=== PATIENT | female | born 1990 | race Caucasian/White ===

== ENCOUNTER 2017-08-09 12:17 | Emergency (ER) | payer MEDICAID, OTHER ==
[2017-08-09] MEDS ORDERED: TORAdol 30 mg Injection IM ONE (13:59)
[2017-08-09 14:05] LABS: Collection Type CLEAN CATCH
--- NOTE | 2017-08-09 14:05 | ERPHSYRPT ---
- History of Present Illness Time Seen by Provider: 08/09/17 13:55 Source: patient Exam Limitations: no limitations Patient Subjective Stated Complaint: states for two days has had urinary hesitency and burning with urination. also having lower back and groin pain Triage Nursing Assessment: ambulated to room per self. skin w/d, color normal, resp easy. abd soft. urine is cloudy and has foul odor. Physician History: 27 year old morbidly obese white female complains of urinary hesitancy, low back pain and dysuris mild suprapubis discomfort. no fevers, no vomiting. PMH migraines, seizures, sleep apnea, hypothyroidism, depression polycystic ovaries, hashimotos PSH cholecystectomy, d+C, tubes removed Timing/Duration: day(s) (2-3 days) Activites at Onset: none Quality: aching, burning Onset Location: other (low back ) Pain Radiation: suprapubic Severity of Pain-Max: mild Severity of Pain-Current: mild Prior abdominal problems: none Modifying Factors: Improves With: urinating. Worsens With: analgesics, antacids , breathing, coughing, defecating, eating, exercise, lying down, palpation, rest , vomiting, position, walking Associated Symptoms: abdominal pain (suprapubic abdomina; pain), dysuria, No fever, No chills, No diaphoresis, No nausea, No vomiting, No nocturia, No polyuria, No urinary frequency, No , No loss of bladder control, No lower back pain, No lumps, No mass, No syncope, No vaginal discharge, No vaginal fluid leakage Allergies/Adverse Reactions: sulfamethoxazole [From Bactrim] Allergy (Severe, Unverified 03/10/16 23:26) Difficulty Breathing RASH trimethoprim [From Bactrim] Allergy (Severe, Unverified 03/10/16 23:26) Difficulty Breathing RASH Home Medications: Levothyroxine Sodium 25 Mcg [Synthroid 25 Mcg] 25 mcg PO DAILY 01/28/12 [ History] Aspirin [Aspirin EC] 81 mg PO DAILY 03/10/16 [History] Vits W-Ca,Fe,FA(<1Mg) [] 1 tab PO DAILY 03/10/16 [History] Hx Tetanus, Diphtheria Vaccination/Date Given: Yes (2015) Hx Influenza Vaccination/Date Given: No Hx Pneumococcal Vaccination/Date Given: No - Review of Systems Constitutional: No Fever, No Chills Eyes: No Symptoms Ears, Nose, & Throat: No Symptoms Respiratory: No Cough, No Dyspnea Cardiac: No Chest Pain, No Edema, No Syncope Abdominal/Gastrointestinal: Abdominal Pain (suprapubic abdominal discomfort), No No Symptoms, No Nausea, No Vomiting, No Diarrhea, No Hematemesis, No Hematochezia, No Melena, No Dysphagia, No Appetite Changes Genitourinary Symptoms: Dysuria, Hesitancy, No Frequency, No Hematuria, No Incontinence, No Urgency, No Urinary Retention, No Flank Pain, No Menorrhagia, No , No Vaginal Bleeding, No Vaginal Discharge, No Vaginal Itching Musculoskeletal: Back Pain (low back pain bilaterally) Skin: No Rash Neurological: No Dizziness, No Focal Weakness, No Sensory Changes Psychological: No Symptoms Endocrine: No Symptoms All Other Systems: Reviewed and Negative - Past Medical History Pertinent Past Medical History: Yes Neurological History: Migraines, Seizures ENT History: No Pertinent History Cardiac History: No Pertinent History Respiratory History: Asthma, Sleep Apnea Endocrine Medical History: Hypothyroidism Musculoskeletal History: No Pertinent History GI Medical History: No Pertinent History History: No Pertinent History Psycho-Social History: Depression Female Reproductive Disorders: Other Other Medical History: PCOS; 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 - Past Surgical History Past Surgical History: Yes Neuro Surgical History: No Pertinent History Cardiac: No Pertinent History Respiratory: No Pertinent History Gastrointestinal: Cholecystectomy Genitourinary: No Pertinent History Musculoskeletal: No Pertinent History Female Surgical History: Section Other Surgical History: D&C, fallopian tubes removed - Social History Smoking Status: Current every day smoker How long have you smoked: 9 Exposure to second hand smoke: No Drug Use: none Patient Lives Alone: No - Female History Hx Last Menstrual Period: 07/20/17 Hx Now: No - Nursing Vital Signs Nursing Vital Signs: Initial Vital Signs Temperature 97.4 F 08/09/17 13:13 Pulse Rate 79 08/09/17 13:13 Respiratory Rate 16 08/09/17 13:13 Blood Pressure 134/65 08/09/17 13:13 O2 Sat by Pulse Oximetry 94 L 08/09/17 13:13 Pain Scale Pain Intensity 8 - Physical Exam General Appearance: mild distress, obese (morbidly obese) Eye Exam: PERRL/EOMI, eyes nml inspection Ears, Nose, Throat Exam: normal ENT inspection, TMs normal, pharynx normal, moist mucous membranes Neck Exam: normal inspection, non-tender, supple, full range of motion Respiratory Exam: normal breath sounds, lungs clear, No respiratory distress Cardiovascular Exam: regular rate/rhythm, normal heart sounds, normal peripheral pulses Gastrointestinal/Abdomen Exam: soft, No tenderness, No mass Back Exam: normal inspection, normal range of motion, No CVA tenderness, No vertebral tenderness Extremity Exam: normal inspection, normal range of motion, pelvis stable Neurologic Exam: alert, oriented x 3, cooperative, 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, normal mood/affect, sensation nml, No motor deficits Skin Exam: normal color, warm, dry Lymphatic Exam: No adenopathy SpO2 Interpretation: normal (94%) SpO2: 94 Oxygen Delivery: Room Air Ordered Tests: Active Orders 24 hr Category Date Time Status Clean Catch Urine Specimen STAT Care 08/09/17 13:25 Active CULTURE,URINE Stat Lab 08/09/17 13:41 Received HCG,QUALITATIVE URINE Stat Lab 08/09/17 13:41 Completed UA W/ MICROSCOPIC Stat Lab 08/09/17 13:41 Completed Medication Summary Discontinued Medications Generic Name Dose Route Start Last Admin Trade Name Freq PRN Reason Stop Dose Admin Ketorolac Tromethamine 60 mg 08/09/17 13:59 08/09/17 14:08 Toradol 30 Mg Injection IM 08/09/17 14:00 60 mg STAT ONE Administration Ketorolac Tromethamine Confirm 08/09/17 14:07 Toradol 30 Mg Injection Administered 08/09/17 14:08 Dose 60 mg .ROUTE .[employer] ONE Lab/Rad Data: Laboratory Results 08/09/17 08/09/17 Range/Units 13:41 13:41 Ur Collection Type CLEAN CATCH Urine Color YELLOW (YELLOW) Urine Appearance HAZY (CLEAR) Urine pH 5.0 (5-6) Ur Specific [place] 1.015 (1.005-1.025) Urine Protein NEGATIVE (Negative) Urine Ketones NEGATIVE (NEGATIVE) Urine Blood TRACE LYSED (0-5) Sergo/ul Urine Nitrite NEGATIVE (NEGATIVE) Urine Bilirubin NEGATIVE (NEGATIVE) Urine Urobilinogen NORMAL (0-1) mg/dL Ur Leukocyte Esterase 2+ (NEGATIVE) Urine Microscopic RBC 2-5 (0-2) /HPF Urine Microscopic WBC 10-15 (0-5) /HPF Ur Epithelial Cells MANY (FEW) /HPF Urine Bacteria MODERATE (NEGATIVE) /HPF Urine Culture Reflexed YES (NO) Urine Glucose NEGATIVE (NEGATIVE) mg/dL Urine HCG, Qual NEGATIVE (Negative) Specimen Received 08/09/2017 1330 - Progress Progress: improved Air Movement: fair Progress Note: 08/09/17 14:12 Patient with urinary tract infection will send home with cipro 500 bid x 7 days , small amount of norco for pain. - Departure Time of Disposition: 14:13 Departure Disposition: Home Clinical Impression: UTI (urinary tract infection) Qualifiers: Urinary tract infection type: site unspecified Hematuria presence: without hematuria Qualified Code(s): N39.0 - Urinary tract infection, site not specified Condition: Fair Critical Care Time: No Referrals: DAVE TAYLOR MD [Primary Care Provider] - Instructions: Urinary Tract Infection (UTI) Additional Instructions: Return home, plenty of fluids, cipro , norco as prescribed. follow up with your family doctor. return for acute distress or for sever symptoms. Prescriptions: Ciprofloxacin [Cipro 500 MG] 500 mg PO BIDAC #14 tablet Hydrocodone/Acetaminophen [[place] 5-325 Tablet] 1 tab PO Q4-6HPRN PRN #10 tablet MDD 6 tablets PRN Reason: Pain
[2017-08-09 14:06] LABS: Bacteria MODERATE /HPF (NEGATIVE); Bilirubin NEGATIVE (NEGATIVE); Blood TRACE LYSED Ery/ul (0-5); COMPLETE URINE MICROSCOPIC? YES; Epithelial Cells MANY /HPF (FEW); Glucose NEGATIVE (NEGATIVE); Leukocyte Esterase 2+ (NEGATIVE)
[2017-08-09 14:07] LABS: ADD URINE CULTURE? YES (NO)
[2017-08-09] MEDS ORDERED: TORAdol 30 mg Injection ONE (14:07)
[2017-08-09 14:33] VITALS: BP 121/79; PULSE 60; O2SAT 96
== END 2017-08-09 14:33 | disposition home or self-care (01) ==
LOC: ED 12:17
DX: N39.0 Urinary tract infection, site not specified (principal)
CPT/HCPCS: 81000; 84703; 87077; 87086; 87186; 96372; 99283; J1885

== ENCOUNTER 2017-11-02 11:12 | Emergency (ER) | payer OTHER ==
[2017-11-02] MEDS ORDERED: Sodium Chloride 0.9% 1000 ML 1,000 ML IV STA (11:31)
[2017-11-02] MEDS ORDERED: Zofran 4 MG/2 ML VIAL IV ONE (11:31)
--- NOTE | 2017-11-02 11:33 | ERPHSYRPT ---
- History of Present Illness Time Seen by Provider: 11/02/17 11:33 Historian: patient Physician History: 27-year-old white female arrives with complaint of right middle quadrant abdominal pain nausea vomiting diarrhea symptoms since 3:00 this morning. Past medical history includes migraines, seizures, sleep apnea, hypothyroidism, depression, polycystic ovaries, Karley's thyroiditis. Past surgical history includes cholecystectomy D&C and she states she had her tubes removed. Social history positive tobacco use denies alcohol or illicit drug use Timing/Duration: today (3 AM) Activities at Onset: rest Quality: cramping Abdominal Pain Onset Location: other (right middle quadrant) Severity of Pain-Max: moderate Severity of Pain-Current: mild Modifying Factors: Improves With: vomiting, other (diarrhea) Associated Symptoms: diarrhea, nausea, vomiting, No back, No chest pain, No diaphoresis, No fever/chills, No fatigue, No headache, No heartburn, No loss of appetite, No neck pain, No rash, No shortness of breath, No syncope, No weakness Previous symptoms: no prior history Allergies/Adverse Reactions: sulfamethoxazole [From Bactrim] Allergy (Severe, Unverified 11/02/17 12:11) Difficulty Breathing RASH trimethoprim [From Bactrim] Allergy (Severe, Unverified 11/02/17 12:11) Difficulty Breathing RASH Home Medications: Levothyroxine Sodium 25 Mcg [Synthroid 25 Mcg] 25 mcg PO DAILY 01/28/12 [ History] Alprazolam 1 mg [Xanax 1 mg] 1 mg PO DAILY PRN 11/02/17 [History] Hx Tetanus, Diphtheria Vaccination/Date Given: Yes (2015) Hx Influenza Vaccination/Date Given: No Hx Pneumococcal Vaccination/Date Given: No - Review of Systems Constitutional: No Fever, No Chills Eyes: No Symptoms Ears, Nose, & Throat: No Symptoms Respiratory: No Cough, No Dyspnea Cardiac: No Chest Pain, No Edema, No Syncope Abdominal/Gastrointestinal: Abdominal Pain, Nausea, Vomiting, Diarrhea, No Constipation, No Hematemesis, No Hematochezia, No Melena, No Dysphagia, No Appetite Changes Genitourinary Symptoms: No Dysuria Musculoskeletal: No Back Pain, No Neck Pain Skin: No Rash Neurological: No Dizziness, No Focal Weakness, No Sensory Changes Psychological: No Symptoms Endocrine: No Symptoms All Other Systems: Reviewed and Negative - Past Medical History Pertinent Past Medical History: Yes Neurological History: Migraines, Seizures ENT History: No Pertinent History Cardiac History: No Pertinent History Respiratory History: Asthma, Sleep Apnea Endocrine Medical History: Hypothyroidism Musculoskeletal History: No Pertinent History GI Medical History: No Pertinent History History: No Pertinent History Psycho-Social History: Depression Female Reproductive Disorders: Other Other Medical History: PCOS; 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 - Past Surgical History Past Surgical History: Yes Neuro Surgical History: No Pertinent History Cardiac: No Pertinent History Respiratory: No Pertinent History Gastrointestinal: Cholecystectomy Genitourinary: No Pertinent History Musculoskeletal: No Pertinent History Female Surgical History: Section Other Surgical History: D&C, fallopian tubes removed - Social History Smoking Status: Current every day smoker How long have you smoked: 9 Exposure to second hand smoke: No Drug Use: none Patient Lives Alone: No - Nursing Vital Signs Nursing Vital Signs: Initial Vital Signs Temperature 98.0 F 11/02/17 11:32 Pulse Rate 96 H 11/02/17 11:32 Respiratory Rate 18 11/02/17 11:32 Blood Pressure 140/100 11/02/17 11:32 O2 Sat by Pulse Oximetry 98 11/02/17 11:32 Pain Scale Pain Intensity 8 - Physical Exam General Appearance: mild distress Eye Exam: PERRL/EOMI, eyes nml inspection Ears, Nose, Throat Exam: normal ENT inspection, pharynx normal, moist mucous membranes Neck Exam: normal inspection, non-tender, supple, full range of motion Respiratory Exam: normal breath sounds, lungs clear, No respiratory distress Cardiovascular Exam: regular rate/rhythm, normal heart sounds Gastrointestinal/Abdomen Exam: soft, normal bowel sounds, tenderness (mild right middle quadrant tenderness with palpation), No distention, No mass, No guarding, No ecchymosis, No pulsatile mass, No rebound, No hernia, No hepatomegaly, No organomegaly, No splenomegaly Back Exam: normal inspection, normal range of motion, No CVA tenderness, No vertebral tenderness Extremity Exam: normal inspection, normal range of motion, pelvis stable Neurologic Exam: alert, oriented x 3, cooperative, normal mood/affect, nml cerebellar function, sensation nml, No motor deficits Skin Exam: normal color, warm, dry SpO2 Interpretation: normal (98%) - Course Nursing assessment & vital signs reviewed: Yes - CT Exams Abdomen/Pelvis CT Interpretation: Discussed w/radiologist (CT abdomen and pelvis with contrast negative.) Ordered Tests: Active Orders 24 hr Category Date Time Status IV Insertion STAT Care 11/02/17 11:31 Active ABDOMEN AND PELVIS W CONTRAST [CT] Stat Exams 11/02/17 13:27 Completed AMYLASE Stat Lab 11/02/17 11:57 Completed CBC W DIFF Stat Lab 11/02/17 11:57 Completed CMP Stat Lab 11/02/17 11:57 Completed HCG QUALITATIVE,SERUM Stat Lab 11/02/17 11:57 Completed LIPASE Stat Lab 11/02/17 11:57 Completed UA W/RFX UR CULTURE Stat Lab 11/02/17 13:00 Completed Medication Summary Discontinued Medications Generic Name Dose Route Start Last Admin Trade Name Freq PRN Reason Stop Dose Admin Sodium Chloride 1,000 mls @ 999 mls/hr 11/02/17 11:31 11/02/17 11:53 Sodium Chloride 0.9% 1000 Ml IV 11/02/17 12:31 999 mls/hr .Q1H1M STA Administration Sodium Chloride Confirm 11/02/17 11:43 Sodium Chloride 0.9% 1000 Ml Administered 11/02/17 11:44 Dose 1,000 mls @ ud .ROUTE .STK-MED ONE Ketorolac Tromethamine Confirm 11/02/17 11:45 Toradol 30 Mg Injection Administered 11/02/17 11:46 Dose 30 mg .ROUTE .STK-MED ONE Ketorolac Tromethamine 30 mg 11/02/17 11:45 11/02/17 11:53 Toradol 30 Mg Injection IV 11/02/17 11:46 30 mg STAT ONE Administration Ondansetron HCl 4 mg 11/02/17 11:31 11/02/17 11:53 Zofran 4 Mg/2 Ml Vial IV 11/02/17 11:32 4 mg STAT ONE Administration Ondansetron HCl Confirm 11/02/17 11:43 Zofran 4 Mg/2 Ml Vial Administered 11/02/17 11:44 Dose 4 mg .ROUTE .STK-MED ONE Lab/Rad Data: Laboratory Result Diagrams 11/02/17 11:57 11/02/17 11:57 Laboratory Results 03/19/18 03/19/18 03/19/18 Range/Units 13:00 11:57 11:57 WBC (4.0-10.5) K/mm3 RBC (4.1-5.4) M/mm3 Hgb (12.0-16.0) gm/dl Hct (35-47) % MCV (78-100) fl MCH (26-32) pg MCHC (32-36) g/dl RDW (11.5-14.0) % Plt Count (150-450) K/mm3 MPV (6-9.5) fl Gran % (36.0-66.0) % Lymphocytes % (24.0-44.0) % Monocytes % (0.0-12.0) % Eosinophils % (0.00-5.0) % Basophils % (0.0-0.4) % Basophils # (0-0.4) Sodium 144 (137-145) mmol/L Potassium 4.5 (3.5-5.1) mmol/L Chloride 104 (98-107) mmol/L Carbon Dioxide 26 (22-30) mmol/L Anion Gap 17.9 H (5-15) MEQ/L BUN 15 (7-17) mg/dL Creatinine 0.78 (0.52-1.04) mg/dL Estimated GFR > 60 ML/MIN Glucose 103 (74-106) mg/dL Calcium 9.5 (8.4-10.2) mg/dL Total Bilirubin 0.60 (0.2-1.3) mg/dL AST 16 (14-36) U/L ALT 21 (0-35) U/L Alkaline Phosphatase 94 (38-126) U/L Serum Total Protein 8.2 (6.3-8.2) g/dL Albumin 4.6 (3.5-5.0) g/dL Amylase 62 (30-110) U/L Lipase 18 L (23-300) U/L Serum , Qual NEGATIVE (Negative) Ur Collection Type VOID Urine Color YELLOW (YELLOW) Urine Appearance CLEAR (CLEAR) Urine pH 5.0 (5-6) Ur Specific [place] 1.020 (1.005-1.025) Urine Protein NEGATIVE (Negative) Urine Ketones NEGATIVE (NEGATIVE) Urine Blood NEGATIVE (0-5) Sergo/ul Urine Nitrite NEGATIVE (NEGATIVE) Urine Bilirubin SMALL (NEGATIVE) Urine Urobilinogen NORMAL (0-1) mg/dL Ur Leukocyte Esterase NEGATIVE (NEGATIVE) Urine Culture Reflexed NO (NO) Urine Glucose NEGATIVE (NEGATIVE) mg/dL Specimen Received 11/02/17 1300 11/02/17 Range/Units 11:57 WBC 18.3 H (4.0-10.5) K/mm3 RBC 5.39 (4.1-5.4) M/mm3 Hgb 13.4 (12.0-16.0) gm/dl Hct 43.2 (35-47) % MCV 80.1 (78-100) fl MCH 24.9 L (26-32) pg MCHC 31.0 L (32-36) g/dl RDW 16.6 H (11.5-14.0) % Plt Count 245 (150-450) K/mm3 MPV 12.3 H (6-9.5) fl Gran % 87.3 H (36.0-66.0) % Lymphocytes % 6.1 L (24.0-44.0) % Monocytes % 5.3 (0.0-12.0) % Eosinophils % 1.2 (0.00-5.0) % Basophils % 0.1 (0.0-0.4) % Basophils # 0.02 (0-0.4) Sodium (137-145) mmol/L Potassium (3.5-5.1) mmol/L Chloride (98-107) mmol/L Carbon Dioxide (22-30) mmol/L Anion Gap (5-15) MEQ/L BUN (7-17) mg/dL Creatinine (0.52-1.04) mg/dL Estimated GFR ML/MIN Glucose (74-106) mg/dL Calcium (8.4-10.2) mg/dL Total Bilirubin (0.2-1.3) mg/dL AST (14-36) U/L ALT (0-35) U/L Alkaline Phosphatase (38-126) U/L Serum Total Protein (6.3-8.2) g/dL Albumin (3.5-5.0) g/dL Amylase (30-110) U/L Lipase (23-300) U/L Serum , Qual (Negative) Ur Collection Type Urine Color (YELLOW) Urine Appearance (CLEAR) Urine pH (5-6) Ur Specific [place] (1.005-1.025) Urine Protein (Negative) Urine Ketones (NEGATIVE) Urine Blood (0-5) Sergo/ul Urine Nitrite (NEGATIVE) Urine Bilirubin (NEGATIVE) Urine Urobilinogen (0-1) mg/dL Ur Leukocyte Esterase (NEGATIVE) Urine Culture Reflexed (NO) Urine Glucose (NEGATIVE) mg/dL Specimen Received - Progress Progress: improved Progress Note: 11/02/17 14:59 Patient is improved but not completely pain-free. Patient does have an elevated white count of 18,000. Urinalysis essentially normal CT of the abdomen and pelvis with contrast is negative. Will plan discharge patient on clear fluids, Phenergan the patient will also be given a small amount of [place] for pain. 11/02/17 15:05 - Departure Time of Disposition: 15:06 Departure Disposition: Home Clinical Impression: Abdominal pain Qualifiers: Abdominal location: unspecified location Qualified Code(s): R10.9 - Unspecified abdominal pain Vomiting Qualifiers: Vomiting type: unspecified Vomiting Intractability: non-intractable Nausea presence: with nausea Qualified Code(s): R11.2 - Nausea with vomiting, unspecified Diarrhea Qualifiers: Diarrhea type: unspecified type Qualified Code(s): R19.7 - Diarrhea, unspecified Condition: Fair Critical Care Time: No Referrals: DAVE TAYLOR MD [Primary Care Provider] - Additional Instructions: Return home. Plenty of fluids, clear fluids only 24-48 hours if abdominal pain nausea vomiting or diarrhea. Phenergan 25 mg one orally every 4-6 hours as needed for nausea and vomiting. [place] 5/325 #12 one orally every 4-6 hours as needed for pain. Follow-up with your family doctor if symptoms are worse, no better in 24-48 hours or persist longer than 72 hours. Return for acute distress or for severe symptoms. Prescriptions: Hydrocodone/Acetaminophen [[place] 5-325 Tablet] 1 tab PO Q4-6HPRN PRN #12 tablet MDD 6 tablets PRN Reason: Pain Promethazine HCl 25 mg [Phenergan 25 mg] 25 mg PO Q4-6HPRN PRN #12 tablet PRN Reason: nausea or vomiting
[2017-11-02] MEDS ORDERED: Sodium Chloride 0.9% 1000 ML 1,000 ML ONE (11:43)
[2017-11-02] MEDS ORDERED: Zofran 4 MG/2 ML VIAL ONE (11:43)
[2017-11-02] MEDS ORDERED: TORAdol 30 mg Injection IV ONE (11:45)
[2017-11-02] MEDS ORDERED: TORAdol 30 mg Injection ONE (11:45)
[2017-11-02 11:57] LABS: BASOPHIL % 0.1 % (0.0-0.4); Basophil (Absolute #) 0.02 (0-0.4); Eosinophil % 1.2 % (0.00-5.0); Eosinophil (Absolute #) 0.22 (0-0.5); Granulocytes % 87.3 % (36.0-66.0); Hematocrit 43.2 % (35-47); Hemoglobin 13.4 gm/dl (12.0-16.0); Lymphocyte (Absolute #) 1.11 (1.0-4.6); Lymphocytes % 6.1 % (24.0-44.0); Mean Cell Volume 80.1 fl (78-100); Mean Corpuscular Hemoglobin 24.9 pg (26-32); Mean Platelet Volume 12.3 fl (6-9.5); Monocyte (Absolute #) 0.97 (0.0-1.3); Monocytes % 5.3 % (0.0-12.0); Platelet Count 245 K/mm3 (150-450); Red Blood Count 5.39 M/mm3 (4.1-5.4); Red Cell Distribution Width 16.6 % (11.5-14.0); White Blood Count 18.3 K/mm3 (4.0-10.5)
[2017-11-02 12:15] LABS: ALBUMIN 4.6 g/dL (3.5-5.0); ALKALINE PHOSPHATASE 94 U/L (38-126); AMYLASE 62 U/L (30-110); ANION GAP 17.9 MEQ/L (5-15); BLOOD UREA NITROGEN 15 mg/dL (7-17); CHLORIDE 104 mmol/L (98-107); Calcium 9.5 mg/dL (8.4-10.2); Carbon Dioxide 26 mmol/L (22-30); Creatinine 1 0.78 mg/dL (0.52-1.04); Glucose 103 mg/dL (74-106); LIPASE 18 U/L (23-300); Potassium 4.5 mmol/L (3.5-5.1); SGOT/AST 16 U/L (14-36); SGPT/ALT 21 U/L (0-35); SODIUM 144 mmol/L (137-145); Total Protein 8.2 g/dL (6.3-8.2)
[2017-11-02 13:13] LABS: Appearance CLEAR (CLEAR); Bilirubin SMALL (NEGATIVE); Blood NEGATIVE Ery/ul (0-5); Glucose NEGATIVE (NEGATIVE); Ketones NEGATIVE (NEGATIVE); Leukocyte Esterase NEGATIVE (NEGATIVE); Nitrite NEGATIVE (NEGATIVE); Protein,Urine Dip NEGATIVE (Negative); Urobilinogen NORMAL mg/dL (0-1)
[2017-11-02 13:38] VITALS: PULSE 80
--- NOTE | 2017-11-02 14:53 | XRAY ---
Indication: Right mid/lower quadrant pain. Diarrhea and vomiting. Multiple contiguous axial images obtained through the abdomen and pelvis using 80 cc Isovue 370 contrast only. Comparison: November 02, 2007. Lung bases are clear. Heart is not enlarged. Noncontrasted stomach and bowel loops appear nonobstructed. Normal air-filled appendix. No free fluid/air. Again previous cholecystectomy. Remaining liver, pancreas, spleen, adrenal glands, kidneys, ureters, bladder, uterus, and aorta appear unremarkable. No pathologic retroperitoneal lymphadenopathy. Osseous structures intact. Impression: CT abdomen/pelvis with contrast exam is negative. CT DI 23.68
[2017-11-02 15:13] VITALS: BP 99/60; O2SAT 100
== END 2017-11-02 15:28 | disposition home or self-care (01) ==
LOC: ED 11:12
DX: R10.9 Unspecified abdominal pain (principal); R11.2 Nausea with vomiting, unspecified; F17.200 Nicotine dependence, unspecified, uncomplicated; R19.7 Diarrhea, unspecified; E03.9 Hypothyroidism, unspecified; J45.909 Unspecified asthma, uncomplicated; R56.9 Unspecified convulsions
CPT/HCPCS: 36000; 36415; 74177; 80053; 81002; 82150; 83690; 84703; 85025; 96360; 96374; 96375; 99283; 99284; J1885; J2405

== ENCOUNTER 2023-01-17 12:29 | Emergency (ER) | payer OTHER, MEDICAID ==
[2023-01-17 13:39] VITALS: PULSE 84
--- NOTE | 2023-01-17 13:47 | ERPHSYRPT ---
- History of Present Illness Time Seen by Provider: 01/17/23 13:47 Historian: patient Exam Limitations: no limitations Patient Subjective Stated Complaint: Pt states that for 2-3 weeks off and on she has been having upper abdominal pain that radiates to her umbilicus with N&V, pt has had her gall bladder removed but still has her appendix, pt is belching eggs and is having very smelly diarrhia, pt gave to twins 3 months ago Triage Nursing Assessment: Pt brought self to the ER, hypertensive, rates pain as 8/10, N&V, pt states that eating and drinking causes the pain to worsen, pt is belching and vomiting while in the ER, pulses normal, skin n/w/d, no difficulty with breathing, doesn't appear to be in any distress Physician History: C/o abdominal pain x 2 weeks. Location: RLQ. Constant. Described as: sharp. Worsens with food. Endorses fever, chills, nausea and vomiting but denies constipation, dysuria, va ginal discharge or vaginal bleeding. Timing/Duration: week(s) (2) Activities at Onset: rest Quality: sharpness, stabbing Abdominal Pain Onset Location: RLQ Pain Radiation: no radiation Severity of Pain-Max: severe Severity of Pain-Current: severe Modifying Factors: Improves With: lying down, rest. Worsens With: eating, movement Associated Symptoms: fever/chills, loss of appetite, nausea, vomiting, No chest pain Previous symptoms: no prior history Allergies/Adverse Reactions: sulfamethoxazole [From Bactrim] Allergy (Severe, Verified 01/17/23 13:39) Difficulty Breathing RASH trimethoprim [From Bactrim] Allergy (Severe, Verified 01/17/23 13:39) Difficulty Breathing RASH Home Medications: Vit No.179/Iron/Folic [ Tablet] 1 each PO DAILY 01/17/23 [History] Sertraline HCl 50 mg [Zoloft 50 mg Tablet] 75 mg PO DAILY 01/17/23 [History] Hx Tetanus, Diphtheria Vaccination/Date Given: Yes (2015) Hx Influenza Vaccination/Date Given: No Hx Pneumococcal Vaccination/Date Given: No Travel Risk - International Travel Have you traveled outside of the country in past 3 weeks: No - Coronavirus Screening Are you exhibiting any of the following symptoms?: No Close contact with a COVID-19 positive Pt in past 14-21 Days: No - Vaccine Status Have you recieved a Covid-19 vaccination: No - Review of Systems Constitutional: Fever, Chills Eyes: No Symptoms Ears, Nose, & Throat: No Symptoms Respiratory: No Symptoms Cardiac: No Symptoms Abdominal/Gastrointestinal: Abdominal Pain (RLQ), Nausea, Vomiting, Appetite Changes, No Diarrhea, No Constipation, No Hematemesis, No Hematochezia Genitourinary Symptoms: No Symptoms Musculoskeletal: No Symptoms Skin: No Symptoms Neurological: No Symptoms - Past Medical History Pertinent Past Medical History: Yes Neurological History: Migraines, Seizures ENT History: No Pertinent History Cardiac History: No Pertinent History Respiratory History: Asthma, Sleep Apnea Endocrine Medical History: Hypothyroidism Musculoskeletal History: No Pertinent History GI Medical History: No Pertinent History History: No Pertinent History Psycho-Social History: Depression Female Reproductive Disorders: Other Other Medical History: PCOS; 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 - Past Surgical History Past Surgical History: Yes Neuro Surgical History: No Pertinent History Cardiac: No Pertinent History Respiratory: No Pertinent History Gastrointestinal: Cholecystectomy Genitourinary: No Pertinent History Musculoskeletal: No Pertinent History Female Surgical History: Section Other Surgical History: D&C, fallopian tubes removed - Social History Smoking Status: Former smoker How long have you smoked: 9 Exposure to second hand smoke: No Drug Use: none Patient Lives Alone: No - Female History Hx Now: No - Nursing Vital Signs Nursing Vital Signs: Initial Vital Signs Temperature 96.3 F 01/17/23 13:24 Pulse Rate 84 01/17/23 13:24 Blood Pressure 137/104 01/17/23 13:24 O2 Sat by Pulse Oximetry 98 01/17/23 13:24 Pain Scale Pain Intensity 8 - Physical Exam General Appearance: mild distress, obese Eye Exam: eyes nml inspection Ears, Nose, Throat Exam: normal ENT inspection Neck Exam: full range of motion Respiratory Exam: normal breath sounds, lungs clear, airway intact, No respiratory distress Cardiovascular Exam: regular rate/rhythm, normal heart sounds, capillary refill <2 sec Gastrointestinal/Abdomen Exam: soft, normal bowel sounds, tenderness (RLQ), guarding, No distention, No rebound Back Exam: normal inspection, No CVA tenderness Extremity Exam: normal inspection, normal range of motion, No swelling, No tenderness Neurologic Exam: alert, oriented x 3, cooperative Skin Exam: normal color, warm, dry SpO2 Interpretation: normal SpO2: 98 O2 Delivery: Room Air - Course Nursing assessment & vital signs reviewed: Yes - CT Exams Abdomen/Pelvis CT Interpretation: Tele-radiologist Report, Normal Appendix, Other (20cm enlarged liver) Ordered Tests: Medication Summary Discontinued Medications Generic Name Dose Route Start Last Admin Trade Name Jessica PRN Reason Stop Dose Admin Sodium Chloride 1,000 mls @ 999 mls/hr 01/17/23 13:58 01/17/23 15:36 Sodium Chloride 0.9% 1000 Ml IV 01/17/23 14:58 Infused .Q1H1M STA Infusion Sodium Chloride Confirm 01/17/23 14:16 Sodium Chloride 0.9% 1000 Ml Administered 01/17/23 14:17 Dose 1,000 mls @ ud .ROUTE .STK-MED ONE Morphine Sulfate 2 mg 01/17/23 13:58 01/17/23 14:21 Morphine Sulfate 2 Mg/Ml Inj IV 01/17/23 13:59 2 mg STAT ONE Administration Morphine Sulfate Confirm 01/17/23 14:16 Morphine Sulfate 2 Mg/Ml Inj Administered 01/17/23 14:17 Dose 2 mg .ROUTE .STK-MED ONE Ondansetron HCl 4 mg 01/17/23 13:58 01/17/23 14:20 Ondansetron Hcl 4 Mg/2 Ml Vial IV 01/17/23 13:59 4 mg STAT ONE Administration Ondansetron HCl Confirm 01/17/23 14:16 Ondansetron Hcl 4 Mg/2 Ml Vial Administered 01/17/23 14:17 Dose 4 mg .ROUTE .STK-MED ONE Lab/Rad Data: Laboratory Result Diagrams 01/17/23 12:30 01/17/23 12:30 Laboratory Results 01/17/23 01/17/23 01/17/23 Range/Units 14:44 13:58 12:30 WBC (4.0-10.5) x10^3/uL RBC (4.1-5.4) x10^6/uL Hgb (12.0-16.0) g/dL Hct (35-47) % MCV (78-100) fL MCH (26-32) pg MCHC (32-36) g/dL RDW (11.5-14.0) % Plt Count (150-450) x10^3/uL MPV (7.5-11.0) fL Gran % (36.0-66.0) % Immature Gran % (Auto) (0.00-0.4) % Nucleat RBC Rel Count (0.00-0.1) % Eos # (Auto) (0-0.5) x10^3/uL Immature Gran # (Auto) (0.00-0.03) x10^3u/L Absolute Lymphs (auto) (1.0-4.6) x10^3/uL Absolute Monos (auto) (0.0-1.3) x10^3/uL Absolute Nucleated RBC (0.00-0.01) x10^3u/L Lymphocytes % (24.0-44.0) % Monocytes % (0.0-12.0) % Eosinophils % (0.00-5.0) % Basophils % (0.0-0.4) % Absolute Granulocytes (1.4-6.9) x10^3/uL Basophils # (0-0.4) x10^3/uL Sodium (137-145) mmol/L Potassium (3.5-5.1) mmol/L Chloride (98-107) mmol/L Carbon Dioxide (22-30) mmol/L Anion Gap (5-15) MEQ/L BUN (7-17) mg/dL Creatinine (0.52-1.04) mg/dL Estimated GFR ML/MIN Glucose (74-106) mg/dL Lactic Acid 1.4 (0.4-2.0) Calcium (8.4-10.2) mg/dL Total Bilirubin (0.2-1.3) mg/dL AST (14-36) U/L ALT (0-35) U/L Alkaline Phosphatase (38-126) U/L Troponin I < 0.012 (0.000-0.034) ng/mL Serum Total Protein (6.3-8.2) g/dL Albumin (3.5-5.0) g/dL Lipase (23-300) U/L Urine Color Yellow (Yellow) Urine Appearance Clear (Clear) Urine pH 6.0 (4.6-8.0) Ur Specific [place] 1.015 (1.005-1.030) Urine Protein 30 (Negative) Urine Glucose (UA) Negative (Negative) mg/dL Urine Ketones Negative (Negative) Urine Blood Negative (Negative) Urine Nitrite Negative (Negative) Urine Bilirubin Negative (Negative) Urine Urobilinogen 0.2 (0.2) mg/dL Ur Leukocyte Esterase Trace A (Negative) U Hyaline Cast (Auto) NONE SEEN (0-2) /LPF Urine Microscopic RBC 0-2 (0-5) /HPF Urine Microscopic WBC 6-10 A (0-5) /HPF Ur Epithelial Cells Moderate A (None Seen) /HPF Urine Bacteria Rare A (None Seen) /HPF Urine Culture Reflexed Y/FV (NO) 01/17/23 01/17/23 Range/Units 12:30 12:30 WBC 10.1 (4.0-10.5) x10^3/uL RBC 5.14 (4.1-5.4) x10^6/uL Hgb 12.9 (12.0-16.0) g/dL Hct 42.5 (35-47) % MCV 82.7 (78-100) fL MCH 25.1 L (26-32) pg MCHC 30.4 L (32-36) g/dL RDW 16.2 H (11.5-14.0) % Plt Count 279 (150-450) x10^3/uL MPV 11.0 (7.5-11.0) fL Gran % 61.1 (36.0-66.0) % Immature Gran % (Auto) 0.3 (0.00-0.4) % Nucleat RBC Rel Count 0.0 (0.00-0.1) % Eos # (Auto) 0.73 H (0-0.5) x10^3/uL Immature Gran # (Auto) 0.03 (0.00-0.03) x10^3u/L Absolute Lymphs (auto) 2.61 (1.0-4.6) x10^3/uL Absolute Monos (auto) 0.50 (0.0-1.3) x10^3/uL Absolute Nucleated RBC 0.00 (0.00-0.01) x10^3u/L Lymphocytes % 25.7 (24.0-44.0) % Monocytes % 4.9 (0.0-12.0) % Eosinophils % 7.2 H (0.00-5.0) % Basophils % 0.8 (0.0-0.4) % Absolute Granulocytes 6.19 (1.4-6.9) x10^3/uL Basophils # 0.08 (0-0.4) x10^3/uL Sodium 139 (137-145) mmol/L Potassium 4.2 (3.5-5.1) mmol/L Chloride 101 (98-107) mmol/L Carbon Dioxide 26 (22-30) mmol/L Anion Gap 15.6 H (5-15) MEQ/L BUN 10 (7-17) mg/dL Creatinine 0.65 (0.52-1.04) mg/dL Estimated GFR > 60.0 ML/MIN Glucose 97 (74-106) mg/dL Lactic Acid (0.4-2.0) Calcium 9.7 (8.4-10.2) mg/dL Total Bilirubin 0.50 (0.2-1.3) mg/dL AST 38 H (14-36) U/L ALT 28 (0-35) U/L Alkaline Phosphatase 132 H (38-126) U/L Troponin I (0.000-0.034) ng/mL Serum Total Protein 9.1 H (6.3-8.2) g/dL Albumin 4.4 (3.5-5.0) g/dL Lipase 30 (23-300) U/L Urine Color (Yellow) Urine Appearance (Clear) Urine pH (4.6-8.0) Ur Specific [place] (1.005-1.030) Urine Protein (Negative) Urine Glucose (UA) (Negative) mg/dL Urine Ketones (Negative) Urine Blood (Negative) Urine Nitrite (Negative) Urine Bilirubin (Negative) Urine Urobilinogen (0.2) mg/dL Ur Leukocyte Esterase (Negative) U Hyaline Cast (Auto) (0-2) /LPF Urine Microscopic RBC (0-5) /HPF Urine Microscopic WBC (0-5) /HPF Ur Epithelial Cells (None Seen) /HPF Urine Bacteria (None Seen) /HPF Urine Culture Reflexed (NO) - Progress Progress: improved Progress Note: CBC wnl, AST elevated at 38. Troponin neg. Lipase wnl. UA did show evidence of UTI and was sent for culture. Patient will be treated w/ Keflex. Advised patient to f/u outpatient to evaluate liver further. Counseled pt/family regarding: lab results, diagnosis, need for follow-up, rad results Medical Desision Making - Diagnostic Testing Diagnostic test were ordered, analyzed, and reviewed by me: Yes Radiological Interpretation: Interpreted by me, Reviewed by me, Teleradiologist Report - Risk of complications The pt has a mod risk of morbidity or mortality based on: Need for prescription drug management - Departure Departure Disposition: Home Clinical Impression: Fatty liver, Nausea and vomiting, UTI (urinary tract infection) Condition: Good Critical Care Time: No Referrals: ROBEL ESPINO MD [Primary Care Provider] - Follow up/PCP as directed Instructions: Nonalcoholic Fatty Liver Disease Prescriptions: Ondansetron ODT 4 MG [Zofran Odt 4 mg] 4 mg PO Q6HPRN PRN #30 tab PRN Reason: Nausea Cephalexin Mh 500 mg [Keflex 500 mg] 500 mg PO TID 5 Days #15 cap
[2023-01-17] MEDS ORDERED: Zofran 4 MG/2 ML VIAL IV ONE (13:58)
[2023-01-17] MEDS ORDERED: MORPHINE SULFATE 2 MG INJ IV ONE (13:58)
[2023-01-17] MEDS ORDERED: Sodium Chloride 0.9% 1000 ML 1,000 ML IV STA (13:58)
[2023-01-17] MEDS ORDERED: Sodium Chloride 0.9% 1000 ML 1,000 ML ONE (14:16)
[2023-01-17] MEDS ORDERED: MORPHINE SULFATE 2 MG INJ ONE (14:16)
[2023-01-17] MEDS ORDERED: Zofran 4 MG/2 ML VIAL ONE (14:16)
[2023-01-17 14:44] LABS: Absolute Neutrophil Ct (ANC) 6.19 x10^3/uL (1.4-6.9); BASOPHIL % 0.8 % (0.0-0.4); Basophil (Absolute #) 0.08 x10^3/uL (0-0.4); Eosinophil % 7.2 % (0.00-5.0); Eosinophil (Absolute #) 0.73 x10^3/uL (0-0.5); Hematocrit 42.5 % (35-47); Hemoglobin 12.9 g/dL (12.0-16.0); IMMATURE GRAN # 0.03 x10^3u/L (0.00-0.03); IMMATURE GRAN % 0.3 % (0.00-0.4); Lymphocyte (Absolute #) 2.61 x10^3/uL (1.0-4.6); Lymphocytes % 25.7 % (24.0-44.0); Mean Cell Volume 82.7 fL (78-100); Mean Corpuscular Hemoglobin 25.1 pg (26-32); Mean Corpuscular Hgb Concent. 30.4 g/dL (32-36); Monocytes % 4.9 % (0.0-12.0); Neutrophil % 61.1 % (36.0-66.0); Platelet Count 279 x10^3/uL (150-450); Red Blood Count 5.14 x10^6/uL (4.1-5.4); Red Cell Distribution Width 16.2 % (11.5-14.0); White Blood Count 10.1 x10^3/uL (4.0-10.5)
[2023-01-17 14:58] LABS: ALBUMIN 4.4 g/dL (3.5-5.0); ALKALINE PHOSPHATASE 132 U/L (38-126); ANION GAP 15.6 MEQ/L (5-15); BLOOD UREA NITROGEN 10 mg/dL (7-17); CHLORIDE 101 mmol/L (98-107); Calcium 9.7 mg/dL (8.4-10.2); Carbon Dioxide 26 mmol/L (22-30); Creatinine 1 0.65 mg/dL (0.52-1.04); EST GLOMERULAR FILTRATION RATE > 60.0 ML/MIN; Glucose 97 mg/dL (74-106); LIPASE 30 U/L (23-300); Potassium 4.2 mmol/L (3.5-5.1); SGOT/AST 38 U/L (14-36); SGPT/ALT 28 U/L (0-35); SODIUM 139 mmol/L (137-145); Total Protein 9.1 g/dL (6.3-8.2)
[2023-01-17 15:07] VITALS: BP 129/76
[2023-01-17 15:40] LABS: Appearance Clear (Clear); Bacteria Rare /HPF (None Seen); Bilirubin Negative (Negative); Blood Negative (Negative); Epithelial Cells Moderate /HPF (None Seen); Glucose, Urine Negative (Negative); Hyaline Casts NONE SEEN /LPF (0-2); Ketones Negative (Negative); Leukocyte Esterase Trace (Negative); Nitrite Negative (Negative); Protein,Urine Dip 30 (Negative); RBC 0-2 /HPF (0-5); Specific Gravity 1.015 (1.005-1.030); Urobilinogen 0.2 mg/dL (0.2)
[2023-01-17 15:52] LABS: ADD URINE CULTURE? Y/FV (NO)
--- NOTE | 2023-01-17 16:49 | XRAY ---
CLINICAL HISTORY:Abdominal pain; COMPARISON:Prior study dated 11/02/2017; TECHNIQUES:CT scan of the abdomen and pelvis was performed with IV contrast. 80 cc Isovue 370 given as IV contrast. Coronal and sagittal reconstructive images were also obtained. CTDI: 96 mGy, DLP: 4420.6 mGy*cm; FINDINGS: Currently liver is seen enlarged measuring 20 cm showing diffuse hypoattenuation reflecting diffuse fatty changes. Cholecystectomy surgical clips are noted. No focal hepatic parenchymal abnormality. The portal vein, intrahepatic biliary radicals and the bile ducts are normal. The spleen, pancreas, and adrenal glands are unremarkable. The kidneys are unremarkable. They are normal in size and shape. No calculi or hydronephrosis. The ascending colon, the transverse colon, the descending colon, visualized small bowel loops are unremarkable. There is no evidence of significant enlargement of the mesenteric or retroperitoneal lymph nodes. The urinary bladder is unremarkable. The rectosigmoid colon is unremarkable. The uterus is unremarkable. The pelvic vasculature is unremarkable. No evidence of pelvic lymphadenopathy. The osseous structures in the pelvis, lower rib cage and lumbar spine show no abnormality. No lytic or sclerotic bone lesions. IMPRESSION: 1. Liver is seen enlarged measuring 20 cm showing diffuse hypoattenuation reflecting diffuse fatty changes. 2. Cholecystectomy surgical clips are noted. 3. No pneumoperitoneum. 4. No fluid collection. Electronically Signed by: Domingo Ellis MD. (01/17/2023 15:43:47 [employer]WING MACHINE [employer])
[2023-01-17 17:07] VITALS: O2SAT 98
== END 2023-01-17 17:30 | disposition home or self-care (01) ==
LOC: ED 12:29
DX: N39.0 Urinary tract infection, site not specified (principal); K76.0 Fatty (change of) liver, not elsewhere classified; R11.2 Nausea with vomiting, unspecified; R10.31 Right lower quadrant pain; R50.9 Fever, unspecified; Z79.899 Other long term (current) drug therapy; Z28.310 Unvaccinated for COVID-19
CPT/HCPCS: 36000; 36415; 74177; 80053; 81001; 83605; 83690; 84484; 85025; 96360; 96374; 96375; 99284; J2270; J2405

== ENCOUNTER 2023-09-27 21:17 | Emergency (ER) | payer OTHER, MEDICAID ==
[2023-09-27 21:29] VITALS: TEMP 97.4
--- NOTE | 2023-09-27 21:55 | ERPHSYRPT ---
- History of Present Illness Time Seen by Provider: 09/27/23 21:56 Historian: patient, family () Exam Limitations: no limitations Patient Subjective Stated Complaint: vomiting and diarrhea since 5pm tonight Triage Nursing Assessment: pt ambulated into ER without diff, spouse at bedside. Pt c/o nausea, vomiting and diarrhea since 5pm this evening. Pt afebrile. Pt took zofran and imodium at home but no improvement. Pt's abd is obese with hypoactive bs x4 quad, tender to center lower abd region. Physician History: Since 5 hours ago pt has had intermittent sharp cramping RUQ abdominal pain with nausea, vomiting, diarrhea and chills; since 1 hour ago lower abdominal pain. Vomiting & diarrhea are without blood. Pt denies chest pain, shortness of air, fever. Allergies/Adverse Reactions: sulfamethoxazole [From Bactrim] Allergy (Severe, Verified 09/27/23 21:39) Difficulty Breathing RASH trimethoprim [From Bactrim] Allergy (Severe, Verified 09/27/23 21:39) Difficulty Breathing RASH Home Medications: Sertraline HCl 50 mg [Zoloft 50 mg Tablet] 50 mg PO DAILY 01/17/23 [History] Levothyroxine Sodium 150 Mcg [Synthroid 150 Mcg] 1 tab PO DAILY 09/27/23 [History] Hx Tetanus, Diphtheria Vaccination/Date Given: Yes Hx Influenza Vaccination/Date Given: No Hx Pneumococcal Vaccination/Date Given: No Immunizations Up to Date: No Travel Risk - International Travel Have you traveled outside of the country in past 3 weeks: No - Coronavirus Screening Are you exhibiting any of the following symptoms?: Yes Symptoms: Vomiting/Diarrhea, Headaches/Body Aches/Fatigue Close contact with a COVID-19 positive Pt in past 14-21 Days: No - Vaccine Status Have you recieved a Covid-19 vaccination: No - Review of Systems Constitutional: Chills, No Fever Ears, Nose, & Throat: No Ear Pain, No Throat Pain Respiratory: No Dyspnea Cardiac: No Chest Pain Abdominal/Gastrointestinal: Abdominal Pain, Nausea, Vomiting, Diarrhea Skin: No Rash Neurological: No Headache - Past Medical History Pertinent Past Medical History: Yes Neurological History: Migraines, Seizures ENT History: No Pertinent History Cardiac History: No Pertinent History Respiratory History: Asthma, Sleep Apnea Endocrine Medical History: Hypothyroidism Musculoskeletal History: No Pertinent History GI Medical History: No Pertinent History, Gallbladder Disease, Other History: No Pertinent History Psycho-Social History: Depression Female Reproductive Disorders: Other Other Medical History: PCOS; 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 elevated liver enzymes - Past Surgical History Past Surgical History: Yes Neuro Surgical History: No Pertinent History Cardiac: No Pertinent History Respiratory: No Pertinent History Gastrointestinal: Cholecystectomy Genitourinary: No Pertinent History Musculoskeletal: No Pertinent History Female Surgical History: Section Other Surgical History: D&C, fallopian tubes removed - Social History Smoking Status: Former smoker How long have you smoked: 9 Exposure to second hand smoke: No Drug Use: none Patient Lives Alone: No - Female History Hx Last Menstrual Period: 09/13/23 Hx Now: No - Nursing Vital Signs Nursing Vital Signs: Initial Vital Signs Temperature 97.4 F 09/27/23 21:28 Pulse Rate 86 09/27/23 21:28 Respiratory Rate 20 09/27/23 21:28 Blood Pressure 135/96 09/27/23 21:28 O2 Sat by Pulse Oximetry 96 09/27/23 21:28 Pain Scale Pain Intensity 7 - Physical Exam General Appearance: alert Eye Exam: PERRL/EOMI Ears, Nose, Throat Exam: TMs normal, pharynx normal Neck Exam: normal inspection Respiratory Exam: normal breath sounds, airway intact Cardiovascular Exam: normal heart sounds Gastrointestinal/Abdomen Exam: soft, other (B.S. normal tone and mildly hyperactive) Back Exam: normal inspection Neurologic Exam: alert, cooperative Skin Exam: warm, dry SpO2 Interpretation: normal SpO2: 96 O2 Delivery: Room Air - Course Nursing assessment & vital signs reviewed: Yes - CT Exams Abdomen/Pelvis CT Interpretation: Tele-radiologist Report (Moderate hepatomegaly with fatty infiltration, no significant interval changes since the previous study. Ileocecal valve lipomatosis.) Ordered Tests: Active Orders 24 hr Category Date Time Status IV Insertion STAT Care 09/27/23 22:03 Active ABDOMEN AND PELVIS W/0 CONTRAS [CT] Stat Exams 09/27/23 22:04 Completed AMYLASE Stat Lab 09/27/23 22:15 Completed CBC W DIFF Stat Lab 09/27/23 22:15 Completed CMP Stat Lab 09/27/23 22:15 Completed HCG QUALITATIVE, SERUM Stat Lab 09/27/23 22:15 Completed LIPASE Stat Lab 09/27/23 22:15 Completed UA W/RFX UR CULTURE Stat Lab 09/27/23 22:12 Completed Medication Summary Discontinued Medications Generic Name Dose Route Start Last Admin Trade Name Jessica PRN Reason Stop Dose Admin Sodium Chloride 1,000 mls @ 999 mls/hr 09/27/23 22:03 09/28/23 00:05 Sodium Chloride 0.9% 1000 Ml IV 09/27/23 23:03 Infused .Q1H1M STA Infusion Sodium Chloride Confirm 09/27/23 22:18 Sodium Chloride 0.9% 1000 Ml Administered 09/27/23 22:19 Dose 1,000 mls @ ud .ROUTE .STK-MED ONE Morphine Sulfate 2 mg 09/27/23 22:03 09/27/23 22:19 Morphine Sulfate 2 Mg/Ml Inj IV 09/27/23 22:04 2 mg STAT ONE Administration Morphine Sulfate Confirm 09/27/23 22:18 Morphine Sulfate 2 Mg/Ml Inj Administered 09/27/23 22:19 Dose 2 mg .ROUTE .STK-MED ONE Ondansetron HCl 4 mg 09/27/23 22:03 09/27/23 22:19 Ondansetron Hcl 4 Mg/2 Ml Vial IV 09/27/23 22:04 4 mg STAT ONE Administration Ondansetron HCl Confirm 09/27/23 22:18 Ondansetron Hcl 4 Mg/2 Ml Vial Administered 09/27/23 22:19 Dose 4 mg .ROUTE .STK-MED ONE Lab/Rad Data: Laboratory Result Diagrams 09/27/23 22:15 09/27/23 22:15 Laboratory Results 09/27/23 09/27/23 09/27/23 Range/Units 22:15 22:15 22:15 WBC 19.7 H (4.0-10.5) x10^3/uL RBC 5.16 (4.1-5.4) x10^6/uL Hgb 13.6 (12.0-16.0) g/dL Hct 44.6 (35-47) % MCV 86.4 (78-100) fL MCH 26.4 (26-32) pg MCHC 30.5 L (32-36) g/dL RDW 13.3 (11.5-14.0) % Plt Count 299 (150-450) x10^3/uL MPV 11.1 H (7.5-11.0) fL Gran % 88.5 H (36.0-66.0) % Immature Gran % (Auto) 0.4 (0.00-0.4) % Nucleat RBC Rel Count 0.0 (0.00-0.1) % Eos # (Auto) 0.08 (0-0.5) x10^3/uL Immature Gran # (Auto) 0.08 H (0.00-0.03) x10^3u/L Absolute Lymphs (auto) 1.10 (1.0-4.6) x10^3/uL Absolute Monos (auto) 0.95 (0.0-1.3) x10^3/uL Absolute Nucleated RBC 0.00 (0.00-0.01) x10^3u/L Lymphocytes % 5.6 L (24.0-44.0) % Monocytes % 4.8 (0.0-12.0) % Eosinophils % 0.4 (0.00-5.0) % Basophils % 0.3 (0.0-0.4) % Absolute Granulocytes 17.42 H (1.4-6.9) x10^3/uL Basophils # 0.06 (0-0.4) x10^3/uL Sodium 137 (137-145) mmol/L Potassium 4.1 (3.5-5.1) mmol/L Chloride 103 (98-107) mmol/L Carbon Dioxide 22 (22-30) mmol/L Anion Gap 16.0 H (5-15) MEQ/L BUN 13 (7-17) mg/dL Creatinine 0.80 (0.52-1.04) mg/dL Estimated GFR 101.0 ML/MIN Glucose 121 H (74-106) mg/dL Calcium 10.1 (8.4-10.2) mg/dL Total Bilirubin 0.60 (0.2-1.3) mg/dL AST 36 (14-36) U/L ALT 49 H (0-35) U/L Alkaline Phosphatase 102 (38-126) U/L Serum Total Protein 9.5 H (6.3-8.2) g/dL Albumin 5.0 (3.5-5.0) g/dL Amylase 95 (30-110) U/L Lipase 28 (23-300) U/L Serum HCG, Qual NEGATIVE (NEGATIVE) Urine Color (Yellow) Urine Appearance (Clear) Urine pH (4.6-8.0) Ur Specific [place] (1.005-1.030) Urine Protein (Negative) Urine Glucose (UA) (Negative) mg/dL Urine Ketones (Negative) Urine Blood (Negative) Urine Nitrite (Negative) Urine Bilirubin (Negative) Urine Urobilinogen (0.2) mg/dL Ur Leukocyte Esterase (Negative) U Hyaline Cast (Auto) (0-2) /LPF Urine Microscopic RBC (0-5) /HPF Urine Microscopic WBC (0-5) /HPF Ur Epithelial Cells (None Seen) /HPF Urine Bacteria (None Seen) /HPF Urine Culture Reflexed (NO) 09/27/23 Range/Units 22:12 WBC (4.0-10.5) x10^3/uL RBC (4.1-5.4) x10^6/uL Hgb (12.0-16.0) g/dL Hct (35-47) % MCV (78-100) fL MCH (26-32) pg MCHC (32-36) g/dL RDW (11.5-14.0) % Plt Count (150-450) x10^3/uL MPV (7.5-11.0) fL Gran % (36.0-66.0) % Immature Gran % (Auto) (0.00-0.4) % Nucleat RBC Rel Count (0.00-0.1) % Eos # (Auto) (0-0.5) x10^3/uL Immature Gran # (Auto) (0.00-0.03) x10^3u/L Absolute Lymphs (auto) (1.0-4.6) x10^3/uL Absolute Monos (auto) (0.0-1.3) x10^3/uL Absolute Nucleated RBC (0.00-0.01) x10^3u/L Lymphocytes % (24.0-44.0) % Monocytes % (0.0-12.0) % Eosinophils % (0.00-5.0) % Basophils % (0.0-0.4) % Absolute Granulocytes (1.4-6.9) x10^3/uL Basophils # (0-0.4) x10^3/uL Sodium (137-145) mmol/L Potassium (3.5-5.1) mmol/L Chloride (98-107) mmol/L Carbon Dioxide (22-30) mmol/L Anion Gap (5-15) MEQ/L BUN (7-17) mg/dL Creatinine (0.52-1.04) mg/dL Estimated GFR ML/MIN Glucose (74-106) mg/dL Calcium (8.4-10.2) mg/dL Total Bilirubin (0.2-1.3) mg/dL AST (14-36) U/L ALT (0-35) U/L Alkaline Phosphatase (38-126) U/L Serum Total Protein (6.3-8.2) g/dL Albumin (3.5-5.0) g/dL Amylase (30-110) U/L Lipase (23-300) U/L Serum HCG, Qual (NEGATIVE) Urine Color Dark Yellow A (Yellow) Urine Appearance Cloudy A (Clear) Urine pH 5.5 (4.6-8.0) Ur Specific [place] >=1.030 A (1.005-1.030) Urine Protein 300 A (Negative) Urine Glucose (UA) Negative (Negative) mg/dL Urine Ketones Trace A (Negative) Urine Blood Negative (Negative) Urine Nitrite Negative (Negative) Urine Bilirubin Small A (Negative) Urine Urobilinogen 1.0 A (0.2) mg/dL Ur Leukocyte Esterase Negative (Negative) U Hyaline Cast (Auto) 11-20 (0-2) /LPF Urine Microscopic RBC 0-2 (0-5) /HPF Urine Microscopic WBC 3-5 (0-5) /HPF Ur Epithelial Cells Few (None Seen) /HPF Urine Bacteria Rare A (None Seen) /HPF Urine Culture Reflexed NO (NO) - Progress Progress: improved Counseled pt/family regarding: lab results, diagnosis, need for follow-up, rad results Medical Desision Making - Diagnostic Testing Diagnostic test were ordered, analyzed, and reviewed by me: Yes Radiological Interpretation: Teleradiologist Report - Departure Departure Disposition: Home Clinical Impression: Abdominal pain, Vomiting, Diarrhea Condition: Stable Critical Care Time: No Referrals: ROBEL ESPINO MD [Primary Care Provider] - Follow up/PCP as directed Instructions: Severe Abdominal Pain, Adult (DC), Nausea and Vomiting, Adult (DC), Diarrhea and Traveler's Diarrhea, Adult (DC) Additional Instructions: Follow up with private doctor tomorrow. Prescriptions: Ondansetron ODT 4 MG [Zofran Odt 4 mg] 4 mg PO Q6H PRN PRN #10 tablet PRN Reason: Nausea
[2023-09-27 22:16] VITALS: RESP 18
[2023-09-27] MEDS ORDERED: MORPHINE SULFATE 2 MG INJ ONE (22:18)
[2023-09-27] MEDS ORDERED: Zofran 4 MG/2 ML VIAL ONE (22:18)
[2023-09-27] MEDS ORDERED: Sodium Chloride 0.9% 1000 ML 1,000 ML ONE (22:18)
[2023-09-27 22:19] LABS: Absolute Neutrophil Ct (ANC) 17.42 x10^3/uL (1.4-6.9); BASOPHIL % 0.3 % (0.0-0.4); Basophil (Absolute #) 0.06 x10^3/uL (0-0.4); Eosinophil % 0.4 % (0.00-5.0); Eosinophil (Absolute #) 0.08 x10^3/uL (0-0.5); Hematocrit 44.6 % (35-47); Hemoglobin 13.6 g/dL (12.0-16.0); IMMATURE GRAN # 0.08 x10^3u/L (0.00-0.03); IMMATURE GRAN % 0.4 % (0.00-0.4); Lymphocytes % 5.6 % (24.0-44.0); Mean Cell Volume 86.4 fL (78-100); Mean Corpuscular Hemoglobin 26.4 pg (26-32); Mean Corpuscular Hgb Concent. 30.5 g/dL (32-36); Mean Platelet Volume 11.1 fL (7.5-11.0); Monocyte (Absolute #) 0.95 x10^3/uL (0.0-1.3); Monocytes % 4.8 % (0.0-12.0); Neutrophil % 88.5 % (36.0-66.0); Platelet Count 299 x10^3/uL (150-450); Red Blood Count 5.16 x10^6/uL (4.1-5.4); Red Cell Distribution Width 13.3 % (11.5-14.0); White Blood Count 19.7 x10^3/uL (4.0-10.5)
[2023-09-27] MEDS: MORPHINE SULFATE 2 MG INJ IV ONE (22:19)
[2023-09-27] MEDS: Zofran 4 MG/2 ML VIAL IV ONE (22:19)
[2023-09-27] MEDS: Sodium Chloride 0.9% 1000 ML 1,000 ML IV STA (22:19)
[2023-09-27 22:33] LABS: HCG SERUM TEST NEGATIVE (NEGATIVE)
[2023-09-27 22:35] LABS: BILIRUBIN,TOTAL 0.6 mg/dL (0.2-1.3); Calcium 10.1 mg/dL (8.4-10.2); Creatinine 1 0.8 mg/dL (0.52-1.04); Potassium 4.1 mmol/L (3.5-5.1); Total Protein 9.5 g/dL (6.3-8.2)
--- NOTE | 2023-09-27 23:59 | XRAY ---
CLINICAL HISTORY: pain TECHNIQUE: A CT scan of the abdomen and pelvis was performed without IV contrast. Coronal and sagittal reconstructive images were also obtained. COMPARISON: 01/17/2023. FINDINGS: Sections of the lower thorax show no significant abnormality. Abdomen: The liver measures 20 cm in size craniocaudally and shows diffuse hypoattenuation. No focal lesion was noted. The intrahepatic biliary radicals and the bile ducts are normal. The gallbladder is surgically removed. The spleen, pancreas, and adrenal glands are unremarkable. The kidneys are normal in size and shape. No calculi or hydronephrosis. The appendix appears unremarkable. Incidental ileocecal valve lipomatosis was noted. The ascending colon, the transverse colon, the descending colon, visualized small bowel loops are unremarkable. There are few millimetric non-specific mesenteric lymph nodes. Pelvis: The urinary bladder is unremarkable. The rectosigmoid colon is unremarkable. The uterus and adnexa appear unremarkable. No evidence of pelvic lymphadenopathy. No definite bony abnormalities could be depicted. IMPRESSION: 1. Moderate hepatomegaly with fatty infiltration, no significant interval changes since the previous study. 2. Ileocecal valve lipomatosis. Electronically Signed by: Domingo Ellis MD. (09/27/2023 23:55:17 EST)
[2023-09-28 00:23] LABS: Appearance Cloudy (Clear); Bacteria Rare /HPF (None Seen); Bilirubin Small (Negative); Blood Negative (Negative); Epithelial Cells Few /HPF (None Seen); Glucose, Urine Negative (Negative); Ketones Trace (Negative); Leukocyte Esterase Negative (Negative); Nitrite Negative (Negative); Ph 5.5 (4.6-8.0); Protein,Urine Dip 300 (Negative); RBC 0-2 /HPF (0-5); Specific Gravity >=1.030 (1.005-1.030)
[2023-09-28 00:24] LABS: ADD URINE CULTURE? NO (NO)
[2023-09-28 00:26] VITALS: O2SAT 96
[2023-09-28 00:28] VITALS: BP 110/56; PULSE 81
[2023-09-28] MEDS ORDERED: Zofran 4 MG/2 ML VIAL ONE (00:33)
[2023-09-28] MEDS: Zofran 4 MG/2 ML VIAL IV ONE (00:35)
== END 2023-09-28 00:53 | disposition home or self-care (01) ==
LOC: ED 21:17
DX: R11.2 Nausea with vomiting, unspecified (principal); R19.7 Diarrhea, unspecified; R10.11 Right upper quadrant pain; R10.30 Lower abdominal pain, unspecified; Z79.899 Other long term (current) drug therapy; Z28.310 Unvaccinated for COVID-19
CPT/HCPCS: 36000; 36415; 74176; 80053; 81001; 82150; 83690; 84703; 85025; 96360; 96374; 96375; 96376; 99284; J2270; J2405

== ENCOUNTER 2025-05-05 13:02 | Emergency (ER) | payer OTHER ==
--- NOTE | 2025-05-05 13:06 | ERPHSYRPT ---
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 She did not hit her head. She did not lose consciousness. She has no head or neck pain. Patient first fell onto her buttock then onto her right ribs. She felt a "pop" sensation. Patient had an intravenous line placed by the paramedics. They provided her with 150 mcg of fentanyl and 4 mg of intravenous Zofran and route to our facility. Patient has a history of depression, hypothyroidism, asthma, sleep apnea and migraine headaches. Occurred: just prior to arrival Injuries/Pain Location: lower (Lower back, sacrum, coccyx and right ribs) Loss of Consciousness: no loss of consciousness Severity of Pain-Max: moderate Severity of Pain-Current: mild Modifying Factors: Improves With: movement Associated Symptoms (Fall): other (Right rib pain, low back pain, pain in the sacrum and coccygeal region) Allergies/Adverse Reactions: sulfamethoxazole [From Bactrim] Allergy (Severe, Verified 09/27/23 21:39) Difficulty Breathing RASH trimethoprim [From Bactrim] Allergy (Severe, Verified 09/27/23 21:39) Difficulty Breathing RASH Home Medications: Sertraline HCl 50 mg [Zoloft 50 mg Tablet] 50 mg PO DAILY 01/17/23 [History] Levothyroxine Sodium 150 Mcg [Synthroid 150 Mcg] 1 tab PO DAILY 09/27/23 [History] Hx Tetanus, Diphtheria Vaccination/Date Given: Yes Hx Influenza Vaccination/Date Given: No Hx Pneumococcal Vaccination/Date Given: No Travel Risk - International Travel Have you traveled outside of the country in past 3 weeks: No - Emerging Infectious Disease Are you exhibiting symptoms associated with any current EIDs: No - Review of Systems Constitutional: No Symptoms Eyes: No Symptoms Ears, Nose, & Throat: No Symptoms Respiratory: No Symptoms Cardiac: No Symptoms Abdominal/Gastrointestinal: No Symptoms Genitourinary Symptoms: No Symptoms Musculoskeletal: Fall, Injury Skin: No Symptoms Neurological: No Symptoms Psychological: No Symptoms Endocrine: No Symptoms Hematologic/Lymphatic: No Symptoms Immunological/Allergic: No Symptoms All Other Systems: Reviewed and Negative - Past Medical History Pertinent Past Medical History: Yes Neurological History: Migraines, Seizures ENT History: No Pertinent History Cardiac History: No Pertinent History Respiratory History: Asthma, Sleep Apnea Endocrine Medical History: Hypothyroidism Musculoskeletal History: No Pertinent History GI Medical History: No Pertinent History, Gallbladder Disease, Other History: No Pertinent History Psycho-Social History: Depression Female Reproductive Disorders: Other Other Medical History: PCOS; 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 elevated liver enzymes - Past Surgical History Past Surgical History: Yes Neuro Surgical History: No Pertinent History Cardiac: No Pertinent History Respiratory: No Pertinent History Gastrointestinal: Cholecystectomy Genitourinary: No Pertinent History Musculoskeletal: No Pertinent History Female Surgical History: Section Other Surgical History: D&C, fallopian tubes removed - Female History Hx Last Menstrual Period: 04/19/2014 - Social History Smoking Status: Former smoker How long have you smoked: 9 Exposure to second hand smoke: No Drug Use: none Patient Lives Alone: No - Nursing Vital Signs Nursing Vital Signs: Initial Vital Signs Blood Pressure 131/75 05/05/25 13:00 O2 Sat by Pulse Oximetry 96 05/05/25 13:00 Pain Scale Pain Intensity 4 - Bob Coma Score Best Eye Response (Bob): (4) open spontaneously Best Verbal Response ([facility]): (5) oriented Best Motor Response (Bob): (6) obeys commands Bob Total: 15 - Physical Exam General Appearance: no apparent distress, alert, anxiety, obese Head Injury: no evidence of injury Eye Exam: PERRL/EOMI, eyes nml inspection ENT Exam: airway nml, nml ext.inspection Neck Exam: supple, trachea midline, full range of motion, normal alignment, normal inspection Respiratory/Chest Exam: normal breath sounds, rib tenderness (Right side to palpation. No step-off.), No chest tenderness, No respiratory distress, No ecchymosis, No crepitus Cardiovascular Exam: normal heart sounds, regular rate/rhythm, No murmur Gastrointestinal Exam: No tenderness Rectal Exam: not done Back Exam: normal inspection, normal range of motion, No CVA tenderness, No vertebral tenderness (No vertebral tenderness) Extremity Exam: normal inspection, normal range of motion, pelvis stable, No deformities Neurologic Exam: alert, oriented x 3, cooperative, durable medical equipment technician II-XII nml as tested, sensation nml Skin Exam: normal color, warm, dry SpO2 Interpretation: normal O2 Delivery: Room Air Ordered Tests: Active Orders 24 hr Category Date Time Status RIBS UNILATERAL Stat Exams 05/05/25 13:07 Completed SACRUM AND COCCYX Stat Exams 05/05/25 13:07 Completed THORACOLUMBAR SPINE Stat Exams 05/05/25 13:07 Completed Medication Summary Discontinued Medications Generic Name Dose Route Start Last Admin Trade Name Jessica PRN Reason Stop Dose Admin Methylprednisolone Sodium 0 mg 05/05/25 14:24 Succinate 125 mg/ Sterile IV 05/05/25 14:25 Water 2 ml STAT ONE Hydromorphone HCl 1 mg 05/05/25 14:24 Hydromorphone 1 Mg/1ml Inj IV 05/05/25 14:25 STAT ONE Orphenadrine Citrate 60 mg 05/05/25 14:24 Orphenadrine Citrate 60 Mg/2 Ml Vial IV 05/05/25 14:25 STAT ONE - Progress Progress: improved, pain not gone completely, re-examined Progress Note: 05/05/25 13:28 My medical decision making and the assignment of low to moderate complexity of this patient's medical issue today is based on review of the patient's past medical history, reviewed patient's medication list, reviewed patient drug allergy list, history present illness and physical findings on examination. The workup today includes x-ray of the sacrum and coccyx, x-ray of the thoracolumbar spine and x-ray of the right ribs. Differential diagnosis includes but is not limited to fractured right ribs, right rib contusion, contusion sacrum/coccyx region, fractured sacrum, fractured coccyx, thoracolumbar strain, thoracolumbar fracture/subluxation 05/05/25 14:25 I interpreted the following preliminary x-ray reports: Right rib x-ray shows no acute fracture or dislocation. X-ray of the sacrum and coccyx shows no acute fracture or dislocation. X-ray of the thoracolumbar spine shows no acute fracture or subluxation. Counseled pt/family regarding: diagnosis, need for follow-up, rad results Medical Desision Making - Independent Historian Additional History obtained from: Ladle Patcher/EMT - Diagnostic Testing Diagnostic test were ordered, analyzed, and reviewed by me: Yes Radiological Interpretation: Interpreted by me - Risk of complications Low Risk: Low risk of morbidity from additional dx testing or treatment The pt has a mod risk of morbidity or mortality based on: Need for prescription drug management - Departure Departure Disposition: Home Clinical Impression: Fall with no significant injury, Contusion Condition: Stable Critical Care Time: No Referrals: ROBEL ESPINO MD [Primary Care Provider, [facility]] - Follow up/PCP as directed Additional Instructions: Take your new medications as prescribed. Apply ice packs 3 times a day to the tender area for 3 days. Call your prescribing provider today, 05/05/2025, to make arrangements for follow-up appointment for further evaluation and management and to be seen in the next 3 to 5 days. I interpreted the preliminary x-ray reports. If the final report differs from my preliminary reading today, you will receive a phone call from the emergency department with instructions on further care. Make sure you are up and ambulating and walking around frequently. Prescriptions: Oxycodone HCl/Acetaminophen [Percocet 5-325 mg Tablet] 1 each PO Q8H PRN PRN #6 tablet MDD 3 PRN Reason: Moderate To Severe Pain Prednisone 10 mg [Deltasone 10 mg] 10 mg PO TID #12 tablet Orphenadrine Citrate 100 mg [Norflex 100 MG Tablet] 100 mg PO BID #10 tab
[2025-05-05 13:07] VITALS: RESP 18; TEMP 97.1
--- NOTE | 2025-05-05 14:21 | XRAY ---
Indication: Fall injury. Comparison: None 3 view sacrum/coccyx obtained. No bony, articular, or soft tissue abnormalities.
--- NOTE | 2025-05-05 14:21 | XRAY ---
Indication: Fall injury. Comparison: None 2 view right ribs demonstrates mild acromioclavicular degenerative arthropathy and cholecystectomy clips. No other bony, articular, or soft tissue abnormalities.
[2025-05-05 14:22] VITALS: O2SAT 99
--- NOTE | 2025-05-05 14:24 | XRAY ---
Indication: Fall injury. Comparison: None 2 view spine obtained centered at thoracolumbar junction demonstrates minimal multilevel lower thoracic endplate spurring and cholecystectomy clips. No other bony, articular, or soft tissue abnormalities.
[2025-05-05] MEDS ORDERED: Norflex 60 MG/2 ML ONE (14:30)
[2025-05-05] MEDS ORDERED: Sterile H2O 10 ml IJ ONE (14:30)
[2025-05-05] MEDS ORDERED: Hydromorphone 1 mg/ml Injection ONE (14:31)
[2025-05-05] MEDS: solu-MEDROL 125 MG, Sterile H2O 10 ml 2 ML IV ONE (14:36)
[2025-05-05] MEDS: Hydromorphone 1 mg/ml Injection IV ONE (14:37)
[2025-05-05] MEDS: Norflex 60 MG/2 ML IV ONE (14:37)
[2025-05-05 15:26] VITALS: BP 112/69; PULSE 72
== END 2025-05-05 15:28 | disposition home or self-care (01) ==
LOC: ED 13:02
DX: S20.211A Contusion of right front wall of thorax, initial encounter (principal); W01.0XXA Fall on same level from slipping, tripping and stumbling without subsequent striking against object, initial encounter; Y93.01 Activity, walking, marching and hiking; Y92.219 Unspecified school as the place of occurrence of the external cause; Y99.0 Civilian activity done for income or pay; Z79.891 Long term (current) use of opiate analgesic; Z79.52 Long term (current) use of systemic steroids; Z79.899 Other long term (current) drug therapy